=== PATIENT | male | born 1940 | race Caucasian/White ===

== ENCOUNTER 2020-04-03 07:36 | Day surgery (SDC) | payer MEDICARE, OTHER ==
[2020-04-02 10:08] LABS: BASOPHILS # (AUTO) 0.1 X10'3 (0-0.2); BASOPHILS % (AUTO) 1.2 % (0-1); EOSINOPHILS # (AUTO) 0.1 X10'3 (0-0.9); EOSINOPHILS % (AUTO) 1.1 % (0-6); HEMATOCRIT 51.3 % (42.0-52.0); HEMOGLOBIN 17.3 g/dl (14.0-17.9); LYMPHOCYTES # (AUTO) 1.6 X10'3 (1.1-4.8); LYMPHOCYTES % (AUTO) 16.3 % (21-51); MEAN CORPUSCULAR HEMOGLOBIN 31.8 PG (27.0-31.0); MEAN CORPUSCULAR HGB CONC 33.6 g/dL (33.0-36.5); MEAN CORPUSCULAR VOLUME 94.5 FL (78-98); MEAN PLATELET VOLUME 8.2 FL (7.4-10.4); MONOCYTES # (AUTO) 0.8 X10'3 (0-0.9); MONOCYTES % (AUTO) 8.4 % (2-12); NEUTROPHILS # (AUTO) 7.2 X10'3 (1.8-7.7); PLATELET COUNT 241 X10'3 (140-440); RED BLOOD COUNT 5.43 X10'6 (4.70-6.10); WHITE BLOOD COUNT 9.8 X10'3 (4.5-11.0)
[2020-04-02 10:22] LABS: ALBUMIN 3.8 G/DL (3.4-5.0); ANION GAP 11 (8-16); BLOOD UREA NITROGEN 44 MG/DL (7-18); BUN/CREATININE RATIO 23.7 (5.4-32.0); CALCIUM 9.2 MG/DL (8.5-10.1); CHLORIDE 105 MMOL/L (99-107); CREATININE 1.86 MG/DL (0.60-1.10); GLUCOSE 253 MG/DL (70-104); POTASSIUM 4.7 MMOL/L (3.5-5.1); SODIUM 137 MMOL/L (135-145); TOTAL CARBON DIOXIDE 20.6 MMOL/L (24-32); eGFR 35 ML/MIN
[2020-04-03] VITALS (16 sets, daily range): BP systolic 76–138; BP diastolic 48–76
[~2020-04-03] VITALS: Ht 188 cm; Wt 113.8 kg
[2020-04-03] MEDS ORDERED: normal saline 1000ml 1,000 ML IV PRN (07:55)
[2020-04-03] MEDS ORDERED: morphine 10mg/ml inj. IV PRN (07:55)
[2020-04-03] MEDS ORDERED: MIDAZolam 1mg/ml 10ml vial IV ONE ×2 (07:55→08:05)
[2020-04-03] MEDS ORDERED: diphenhydrAMINE 25mg capsule PO ONE (08:00)
[2020-04-03] MEDS ORDERED: atropine 0.1mg/ml 10ml syringe IV PRN (08:05)
[2020-04-03] MEDS ORDERED: LORazepam 2 mg/ml vial IV ONE (08:05)
[2020-04-03] MEDS ORDERED: amiodarone 150mg/dext, iso-os 100 ML IV ONE (08:05)
[2020-04-03] MEDS ORDERED: APIX5TAB3 PO (08:14)
[2020-04-03] MEDS ORDERED: BIMA2.5D OP (08:14)
[2020-04-03] MEDS ORDERED: AMIO200T62 PO (08:14)
[2020-04-03] MEDS ORDERED: BRIN8DRO (08:14)
[2020-04-03] MEDS ORDERED: EMPA10TA PO (08:14)
[2020-04-03] MEDS ORDERED: AZEL6DRO5 (08:14)
[2020-04-03] MEDS ORDERED: benadryl (08:14)
[2020-04-03] MEDS ORDERED: SITA50TA7 PO (08:14)
[2020-04-03] MEDS ORDERED: CETI10TA14 PO (08:16)
[2020-04-03] MEDS ORDERED: CARV3.122 PO (08:16)
[2020-04-03] MEDS ORDERED: LORazepam 0.5 MG tablet PO ONE (09:35)
== END 2020-04-03 11:47 | disposition home or self-care (01) ==
LOC: SSTAY O 07:36
PROVIDERS: ATTEND Internal Medicine Cardiovascular Disease
DX: I48.19 Other persistent atrial fibrillation (principal); E11.9 Type 2 diabetes mellitus without complications; I10 Essential (primary) hypertension; E78.5 Hyperlipidemia, unspecified; E66.9 Obesity, unspecified; Z68.32 Body mass index [BMI] 32.0-32.9, adult; Z87.891 Personal history of nicotine dependence; Z79.899 Other long term (current) drug therapy
CPT/HCPCS: 36415; 80048; 82948; 85025; 85610; 92960; 93005; 94760; J2250; J2270

== ENCOUNTER 2020-10-17 07:39 | Outpatient (CLI) | payer MEDICARE, OTHER ==
[2020-10-17] VITALS (20 sets, daily range): BP systolic 91–150; BP diastolic 47–89
[~2020-10-17 07:39] MED LIST: AMIO200T62 PO; APIX5TAB3 PO; AZEL6DRO5; BIMA2.5D OP; BRIN8DRO; CARV3.122 PO; CETI10TA14 PO; EMPA10TA PO; SITA50TA7 PO; benadryl
== END 2020-10-17 23:59 | disposition home or self-care (01) ==
LOC: CARD DIAG 07:39
PROVIDERS: ATTEND Internal Medicine Cardiovascular Disease
DX: R42 Dizziness and giddiness (principal)
CPT/HCPCS: 93660

== ENCOUNTER 2021-02-26 15:55 | Outpatient (CLI) | payer MEDICARE, OTHER ==
[2021-02-26 16:32] LABS: TOTAL HEMOGLOBIN 16.7 G/dl (14.0-18.0)
== END 2021-02-26 23:59 | disposition home or self-care (01) ==
LOC: RT 15:55
PROVIDERS: ATTEND Internal Medicine Cardiovascular Disease
DX: R94.2 Abnormal results of pulmonary function studies (principal); Z79.899 Other long term (current) drug therapy
CPT/HCPCS: 71046; 85018; 94010; 94727; 94729

== ENCOUNTER 2022-09-09 08:42 | Day surgery (SDC) | payer MEDICARE, OTHER ==
[2022-09-09] VITALS (11 sets, daily range): BP systolic 116–147; BP diastolic 51–81
[~2022-09-09] VITALS: Ht 182.9 cm; Wt 105.9 kg
[2022-09-09] MEDS ORDERED: LORazepam 0.5 MG tablet PO PRN ×2 (09:10→13:15)
[2022-09-09] MEDS ORDERED: diphenhydrAMINE 25mg capsule PO PRN ×2 (09:10→13:15)
[2022-09-09 09:42] LABS: BASOPHILS # (AUTO) 0.1 X10'3 (0-0.2); BASOPHILS % (AUTO) 0.9 % (0-1); EOSINOPHILS # (AUTO) 0.3 X10'3 (0-0.9); EOSINOPHILS % (AUTO) 2.2 % (0-6); HEMATOCRIT 44.4 % (42.0-52.0); HEMOGLOBIN 14.4 g/dl (14.0-17.9); LYMPHOCYTES # (AUTO) 2.6 X10'3 (1.1-4.8); LYMPHOCYTES % (AUTO) 20.1 % (21-51); MEAN CORPUSCULAR HEMOGLOBIN 30.5 PG (27.0-31.0); MEAN CORPUSCULAR HGB CONC 32.4 g/dL (33.0-36.5); MEAN CORPUSCULAR VOLUME 94.2 FL (78-98); MEAN PLATELET VOLUME 7.9 FL (7.4-10.4); MONOCYTES # (AUTO) 1.1 X10'3 (0-0.9); MONOCYTES % (AUTO) 8.3 % (2-12); NEUTROPHILS # (AUTO) 8.9 X10'3 (1.8-7.7); NEUTROPHILS % (AUTO) 68.5 % (42-75); PLATELET COUNT 242 X10'3 (140-440); RED BLOOD COUNT 4.71 X10'6 (4.70-6.10); RED CELL DISTRIBUTION WIDTH 14.8 % (11.5-14.5)
[2022-09-09] MEDS ORDERED: ROSU40TA22 PO (09:46)
[2022-09-09] MEDS ORDERED: GLIP5TAB13 PO (09:46)
[2022-09-09] MEDS ORDERED: DABI150C PO (09:46)
[2022-09-09 09:54] LABS: ALBUMIN 3.1 G/DL (3.4-5.0); ANION GAP 14 (8-16); BLOOD UREA NITROGEN 26 MG/DL (7-18); BUN/CREATININE RATIO 18.4 (5.4-32.0); CALCIUM 8.4 MG/DL (8.5-10.1); CHLORIDE 107 MMOL/L (99-107); CREATININE 1.41 MG/DL (0.60-1.10); GLUCOSE 261 MG/DL (70-104); POTASSIUM 4.1 MMOL/L (3.5-5.1); SODIUM 139 MMOL/L (135-145); TOTAL CARBON DIOXIDE 18.4 MMOL/L (24-32); eGFR 48 ML/MIN
[2022-09-09] MEDS ORDERED: nitroGLYCERIN-Tridil 50MG/D5W 250 ML IV ONE (10:45)
[2022-09-09] MEDS ORDERED: verapamil 2.5 mg/ml inj IV ONE (10:46)
[2022-09-09] MEDS ORDERED: heparin 1,000unit/ml 10ml vial 10 ML ONE (10:46)
[2022-09-09] MEDS ORDERED: iohexol 350MG/ML 100ml bottle IV ONE (10:46)
[2022-09-09] MEDS ORDERED: iohexol 350 MG/ML 50ML vial IV ONE (10:46)
[2022-09-09] MEDS ORDERED: LIDOcaine 1% (10mg/ml) 2ml vial ONE (10:46)
[2022-09-09] MEDS ORDERED: midazolam 1 mg/ML 2ml injection ONE (10:46)
[2022-09-09] MEDS ORDERED: fentaNYL/PF 50MCG/1 ML 2ML syringe ONE (10:47)
[2022-09-09] MEDS ORDERED: sodium bicarbonate (8.4%) inj. 150 ML in dextrose 5%-water 850 ML IV ONE ×2 (13:10→13:15)
[2022-09-09] MEDS ORDERED: ACETYLCYSTEINE 200 MG/1 ML 4 ML ORAL SOLUTION PO ONE ×2 (13:15→17:53)
[2022-09-09 13:36] LABS: ISTAT HGB ART 13.3 g/dl (14.0-17.9); ISTAT Hct ART 39 %PCV (42-52); ISTAT O2 SATURATION ARTERIAL 93 % (95-98); ISTAT SOURCE ART
[2022-09-09 15:18] LABS: ISTAT Hct MIX 39 %PCV (42-52); ISTAT O2 SATURATION MIX VENOUS 59 % (60-80); ISTAT SOURCE VEN
== END 2022-09-09 18:00 | disposition home or self-care (01) ==
LOC: SSTAY O 08:42
PROVIDERS: ATTEND Internal Medicine Cardiovascular Disease
DX: R94.39 Abnormal result of other cardiovascular function study (principal); R53.83 Other fatigue; R06.02 Shortness of breath; I25.118 Atherosclerotic heart disease of native coronary artery with other forms of angina pectoris; I10 Essential (primary) hypertension; E78.5 Hyperlipidemia, unspecified; I48.0 Paroxysmal atrial fibrillation; G47.33 Obstructive sleep apnea (adult) (pediatric); J44.9 Chronic obstructive pulmonary disease, unspecified; I49.8 Other specified cardiac arrhythmias; E08.21 Diabetes mellitus due to underlying condition with diabetic nephropathy; E66.9 Obesity, unspecified; Z68.30 Body mass index [BMI] 30.0-30.9, adult; Z79.899 Other long term (current) drug therapy; Z79.84 Long term (current) use of oral hypoglycemic drugs; Z98.890 Other specified postprocedural states; Z87.891 Personal history of nicotine dependence; Z82.3 Family history of stroke; Z82.49 Family history of ischemic heart disease and other diseases of the circulatory system
CPT/HCPCS: 36415; 76937; 80048; 82803; 82948; 83880; 85014; 85025; 85610; 93005; 93461; 99152; 99153; C1751; C1769; C1894; J1644; J2250; J3010; J3490; J7030; J7070; Q0163; Q9967; A6258; A6402; C1725

== ENCOUNTER 2022-10-07 08:30 | Day surgery (SDC) | payer MEDICARE, OTHER ==
[2022-10-06 16:12] LABS: BASOPHILS # (AUTO) 0.1 X10'3 (0-0.2); BASOPHILS % (AUTO) 0.8 % (0-1); EOSINOPHILS # (AUTO) 0.2 X10'3 (0-0.9); EOSINOPHILS % (AUTO) 2.3 % (0-6); HEMATOCRIT 43.9 % (42.0-52.0); HEMOGLOBIN 14.4 g/dl (14.0-17.9); LYMPHOCYTES # (AUTO) 2.4 X10'3 (1.1-4.8); LYMPHOCYTES % (AUTO) 21.8 % (21-51); MEAN CORPUSCULAR HEMOGLOBIN 31.3 PG (27.0-31.0); MEAN CORPUSCULAR HGB CONC 32.8 g/dL (33.0-36.5); MEAN CORPUSCULAR VOLUME 95.5 FL (78-98); MEAN PLATELET VOLUME 8.2 FL (7.4-10.4); MONOCYTES # (AUTO) 0.8 X10'3 (0-0.9); MONOCYTES % (AUTO) 7.2 % (2-12); NEUTROPHILS # (AUTO) 7.5 X10'3 (1.8-7.7); NEUTROPHILS % (AUTO) 67.9 % (42-75); PLATELET COUNT 230 X10'3 (140-440); RED BLOOD COUNT 4.59 X10'6 (4.70-6.10); RED CELL DISTRIBUTION WIDTH 13.8 % (11.5-14.5)
[2022-10-06 16:16] LABS: APTT 57 SECONDS (22-32)
[2022-10-06 16:17] LABS: ALBUMIN 3.1 G/DL (3.4-5.0); ANION GAP 9 (8-16); BLOOD UREA NITROGEN 30 MG/DL (7-18); BUN/CREATININE RATIO 19.2 (5.4-32.0); CALCIUM 8.6 MG/DL (8.5-10.1); CHLORIDE 106 MMOL/L (99-107); CREATININE 1.56 MG/DL (0.60-1.10); GLUCOSE 291 MG/DL (70-104); POTASSIUM 4.3 MMOL/L (3.5-5.1); SODIUM 139 MMOL/L (135-145); TOTAL CARBON DIOXIDE 24.5 MMOL/L (24-32); eGFR 43 ML/MIN
[~2022-10-07] VITALS: Ht 182.9 cm; Wt 104.9 kg
[~2022-10-07 08:30] MED LIST changes: -APIX5TAB3 PO; -CETI10TA14 PO; +DABI150C PO; +GLIP5TAB13 PO; +ROSU40TA22 PO; -SITA50TA7 PO
[2022-10-07] MEDS ORDERED: LORazepam 0.5 MG tablet PO PRN (08:50)
[2022-10-07] MEDS ORDERED: diphenhydrAMINE 25mg capsule PO PRN (08:50)
[2022-10-07] MEDS ORDERED: sodium bicarbonate 1meq/ml syr 150 ML in dextrose 5%-water 1,000 ML IV ONE (08:50)
[2022-10-07] MEDS ORDERED: normal saline 1,000 ML IV SCH (08:50)
[2022-10-07] MEDS ORDERED: SODIUM BICARB 150mEq/D5W 1L 1,000 ML IV ONE (08:55)
[2022-10-07 09:00] VITALS: BP 105/60
[2022-10-07] MEDS ORDERED: AMIO200T61 PO (09:16)
--- NOTE | 2022-10-07 09:20 | NUR ---
Phone call to [employer] [facility] to notify Dr. Jeronimo that pt took his Pradexa last night at 1030PM. Awaiting Dr. Jeronimo return call.
--- NOTE | 2022-10-07 09:40 | NUR ---
Dr. Jeronimo at pt bedside talking with pt, decision made to cancel and re-schedule procedure.
--- NOTE | 2022-10-07 10:00 | NUR ---
Contacted Dr. Jeronimo office for re-schedule date. Awaiting response.
--- NOTE | 2022-10-07 10:10 | NUR ---
DC education given to pt and daughter re: date and time of re-schedule, not to take Pradaxea for 3 days prior and to go to Dr. Jeronimo office to picker/puller paper on day before procedure, both pt and daughter verbalize understanding.
== END 2022-10-07 10:28 | disposition home or self-care (01) ==
LOC: SSTAY O 08:30
PROVIDERS: ATTEND Internal Medicine Cardiovascular Disease
DX: R94.39 Abnormal result of other cardiovascular function study (principal); Z53.8 Procedure and treatment not carried out for other reasons; I25.118 Atherosclerotic heart disease of native coronary artery with other forms of angina pectoris; I48.91 Unspecified atrial fibrillation; I10 Essential (primary) hypertension; E08.21 Diabetes mellitus due to underlying condition with diabetic nephropathy; E78.5 Hyperlipidemia, unspecified; F17.290 Nicotine dependence, other tobacco product, uncomplicated; E66.9 Obesity, unspecified; J44.9 Chronic obstructive pulmonary disease, unspecified; Z98.890 Other specified postprocedural states; Z82.49 Family history of ischemic heart disease and other diseases of the circulatory system; Z68.31 Body mass index [BMI] 31.0-31.9, adult; Z79.01 Long term (current) use of anticoagulants; Z79.84 Long term (current) use of oral hypoglycemic drugs; Z79.899 Other long term (current) drug therapy; Z88.0 Allergy status to penicillin; Z88.8 Allergy status to other drugs, medicaments and biological substances
CPT/HCPCS: 36415; 80048; 82948; 85025; 85610; 85730; 93005; J7030

== ENCOUNTER 2022-10-28 06:50 | Day surgery (SDC) | payer MEDICARE, OTHER ==
[2022-10-27 13:31] LABS: BASOPHILS # (AUTO) 0.1 X10'3 (0-0.2); BASOPHILS % (AUTO) 0.7 % (0-1); EOSINOPHILS # (AUTO) 0.1 X10'3 (0-0.9); EOSINOPHILS % (AUTO) 1.3 % (0-6); HEMATOCRIT 44.2 % (42.0-52.0); HEMOGLOBIN 14.2 g/dl (14.0-17.9); LYMPHOCYTES # (AUTO) 2.4 X10'3 (1.1-4.8); LYMPHOCYTES % (AUTO) 20.5 % (21-51); MEAN CORPUSCULAR HEMOGLOBIN 30.7 PG (27.0-31.0); MEAN CORPUSCULAR HGB CONC 32.2 g/dL (33.0-36.5); MEAN CORPUSCULAR VOLUME 95.3 FL (78-98); MEAN PLATELET VOLUME 8.1 FL (7.4-10.4); MONOCYTES # (AUTO) 0.9 X10'3 (0-0.9); MONOCYTES % (AUTO) 8.1 % (2-12); NEUTROPHILS % (AUTO) 69.4 % (42-75); PLATELET COUNT 250 X10'3 (140-440); RED BLOOD COUNT 4.64 X10'6 (4.70-6.10); RED CELL DISTRIBUTION WIDTH 13.9 % (11.5-14.5); WHITE BLOOD COUNT 11.5 X10'3 (4.5-11.0)
[2022-10-27 13:41] LABS: APTT 30 SECONDS (22-32)
[2022-10-27 13:47] LABS: ALBUMIN 3.5 G/DL (3.4-5.0); ANION GAP 6 (8-16); CALCIUM 9.2 MG/DL (8.5-10.1); CHLORIDE 108 MMOL/L (99-107); GLUCOSE 333 MG/DL (70-104); POTASSIUM 4.4 MMOL/L (3.5-5.1); SODIUM 141 MMOL/L (135-145); TOTAL CARBON DIOXIDE 27.5 MMOL/L (24-32); eGFR 42 ML/MIN
[2022-10-27 13:48] LABS: BLOOD UREA NITROGEN 29 MG/DL (7-18); BUN/CREATININE RATIO 18.1 (5.4-32.0)
[~2022-10-28] VITALS: Ht 182.9 cm; Wt 105.3 kg
[2022-10-28] VITALS (13 sets, daily range): BP systolic 111–150; BP diastolic 60–79
[~2022-10-28 06:50] MED LIST changes: +AMIO200T61 PO; -AMIO200T62 PO; -CARV3.122 PO; -ROSU40TA22 PO
[2022-10-28] MEDS ORDERED: normal saline 1,000 ML IV SCH (07:20)
[2022-10-28] MEDS ORDERED: LORazepam 0.5 MG tablet PO PRN (07:20)
[2022-10-28] MEDS ORDERED: acetylcysteine 200 MG/ml 4ml vial PO PRN (07:20)
[2022-10-28] MEDS ORDERED: diphenhydrAMINE 25mg capsule PO PRN (07:20)
[2022-10-28] MEDS ORDERED: SODIUM BICARB 150mEq/D5W 1L 1,000 ML IV ONE (07:25)
[2022-10-28] MEDS ORDERED: ROSU40TA22 PO (07:26)
[2022-10-28] MEDS ORDERED: CARV6.253 PO (07:26)
[2022-10-28] MEDS ORDERED: DIPH-681 PO (07:26)
[2022-10-28] MEDS ORDERED: GLIP10TA11 PO (07:27)
[2022-10-28] MEDS ORDERED: verapamil 2.5 mg/ml inj IV ONE (08:23)
[2022-10-28] MEDS ORDERED: fentaNYL/PF 50MCG/1 ML 2ML syringe ONE ×2 (08:23→11:27)
[2022-10-28] MEDS ORDERED: LIDOcaine 1% (10mg/ml) 2ml vial ONE (08:23)
[2022-10-28] MEDS ORDERED: nitroGLYCERIN-Tridil 50MG/D5W 250 ML IV ONE ×2 (08:23→11:34)
[2022-10-28] MEDS ORDERED: heparin 25,000 UNIT/250ml bag 250 ML IV ONE ×2 (08:23→11:36)
[2022-10-28] MEDS ORDERED: midazolam 1 mg/ML 2ml injection ONE ×2 (08:23→11:27)
[2022-10-28] MEDS ORDERED: heparin 1,000unit/ml 10ml vial 10 ML ONE ×2 (08:23→11:27)
[2022-10-28] MEDS ORDERED: iohexol 350MG/ML 100ml bottle IV ONE ×4 (08:24→12:35)
[2022-10-28] MEDS ORDERED: LIDOcaine 1% 30ml preserv. free vial ONE (11:27)
[2022-10-28] MEDS ORDERED: clopidogrel 300mg tablet ONE (12:43)
[2022-10-28] MEDS ORDERED: normal saline 1000ml 1,000 ML IV SCH (15:10)
[2022-10-29] MEDS ORDERED: clopidogrel 75mg tablet PO SCH (08:00)
== END 2022-10-28 19:10 | disposition home or self-care (01) ==
LOC: SSTAY O 06:50
PROVIDERS: ATTEND Internal Medicine Cardiovascular Disease
DX: I25.118 Atherosclerotic heart disease of native coronary artery with other forms of angina pectoris (principal); I25.82 Chronic total occlusion of coronary artery; I48.91 Unspecified atrial fibrillation; I49.8 Other specified cardiac arrhythmias; E08.21 Diabetes mellitus due to underlying condition with diabetic nephropathy; I10 Essential (primary) hypertension; J44.9 Chronic obstructive pulmonary disease, unspecified; E78.5 Hyperlipidemia, unspecified; E66.9 Obesity, unspecified; Z68.30 Body mass index [BMI] 30.0-30.9, adult; Z87.891 Personal history of nicotine dependence; Z79.84 Long term (current) use of oral hypoglycemic drugs; Z79.899 Other long term (current) drug therapy; Z98.890 Other specified postprocedural states; Z88.0 Allergy status to penicillin; Z88.8 Allergy status to other drugs, medicaments and biological substances; Z82.3 Family history of stroke; Z82.49 Family history of ischemic heart disease and other diseases of the circulatory system
CPT/HCPCS: 36415; 76937; 80048; 82948; 85025; 85347; 85610; 85730; 92920; 93005; 99152; 99153; C1725; C1751; C1760; C1769; C1874; C1894; C9600; J1644; J2250; J3010; J3490; J7030; Q0163; Q9967; 92928; A6258; A6449; C9607